=== PATIENT | female | born 1935 | race Caucasian/White ===

== ENCOUNTER 2021-04-15 10:00 | Emergency (ER) | payer OTHER ==
[~2021-04-15] VITALS: Ht 154.9 cm; Wt 54.4 kg
[2021-04-15 10:44] VITALS: BP 152/71
[2021-04-15] MEDS ORDERED: AZIT250T4 PO (12:18)
[2021-04-15] MEDS ORDERED: BENZ100C6 PO (12:18)
[2021-04-15 12:30] VITALS: BP 152/71
== END 2021-04-15 12:30 | disposition home or self-care (01) ==
LOC: MED 10:00
DX: J20.9 Acute bronchitis, unspecified (principal)
CPT/HCPCS: 71045; 99283